=== PATIENT | male | born 1955 | race Caucasian/White ===

== ENCOUNTER → 2018-12-25 | Outpatient (CLI) | payer MEDICARE, SELFPAY ==
[2018-12-27 05:07] LABS: HEPATITIS B SURFACE AG Negative (Negative); Hepatitis A AB, Total Negative (Negative); Hepatitis A IgM Antibody Negative (Negative); Hepatitis B Core AB IgM Negative (Negative); Hepatitis B Core Ab Total Negative (Negative); Hepatitis C Ab 0.1 s/co ratio (0.0-0.9)
[2018-12-27 15:26] LABS: Hep B Surface Antibodies Non Reactive (.)
== END | disposition home or self-care (01) ==
LOC: MTLAB 15:01
PROVIDERS: Family Provider Family Medicine; PCP Family Medicine; Referring Provider Dermatology Pediatric Dermatology; Visit Provider Dermatology Pediatric Dermatology
DX: L43.8 Other lichen planus (principal)
CPT/HCPCS: 36415; 86704; 86705; 86706; 86708; 86709; 86803; 87340